=== PATIENT | male | born 1995 | race Two or more races ===

== ENCOUNTER 2017-05-13 16:30 | Emergency (ER) | payer BC, SELFPAY ==
[~2017-05-13] VITALS: Ht 177.8 cm; Wt 58.8 kg
[2017-05-13 17:15] LABS: HEMATOCRIT 47.7 % (39.2-51.8); HEMOGLOBIN 16.5 g/dL (13.7-18.0); WHITE BLOOD COUNT 7.8 x10^3/uL (3.4-10)
[2017-05-13 17:24] LABS: BLOOD UREA NITROGEN 13 mg/dL (7-18)
[2017-05-13 18:11] VITALS: BP 128/71
== END 2017-05-13 19:22 | disposition home or self-care (01) ==
LOC: ED 19:16
DX: R20.9 Unspecified disturbances of skin sensation (principal); M79.632 Pain in left forearm; F12.10 Cannabis abuse, uncomplicated
CPT/HCPCS: 36415; 80048; 82040; 85025; 99284

== ENCOUNTER → 2019-07-15 | Outpatient (CLI) | payer BC | END | disposition home or self-care (01) | LOC: CARD 08:56 | PROVIDERS: ATTEND Psychiatry & Neurology Neurology | DX: G40.89 Other seizures (principal) | CPT/HCPCS: 95819 ==

== ENCOUNTER 2020-05-08 13:49 | Emergency (ER) | payer BC, OTHER ==
[~2020-05-08] VITALS: Ht 177.8 cm; Wt 64.3 kg
[2020-05-08 14:26] LABS: BASOPHILS # (AUTO) 0.05 x10^3/uL (0-0.1); BASOPHILS % (AUTO) 1 % (0-1); EOSINOPHILS # (AUTO) 0.34 x10^3/uL (0-0.4); EOSINOPHILS % (AUTO) 4 % (1-7); LYMPHOCYTES # (AUTO) 2.61 x10^3/uL (1-3.4); LYMPHOCYTES % (AUTO) 33 % (22-44); MD NO; MEAN CORPUSCULAR HEMOGLOBIN 29.3 pg (27.5-34.5); MEAN CORPUSCULAR HGB CONC 32.8 g/dL (33.2-36.2); MEAN CORPUSCULAR VOLUME 89.5 fL (81-97); MEAN PLATELET VOLUME 8.5 fL (7.4-10.4); MONOCYTES # (AUTO) 0.84 x10^3/uL (0.2-0.8); MONOCYTES % (AUTO) 11 % (2-9); NEUTROPHILS # (AUTO) 4.07 x10^3/uL (1.8-6.8); NEUTROPHILS % (AUTO) 52 % (42-75); PLATELET COUNT 236 x10^3/uL (130-400); RED BLOOD COUNT 5.16 x10^6/uL (4.38-5.82); RED CELL DISTRIBUTION WIDTH 13.1 % (9.4-14.8)
[2020-05-08 14:34] LABS: ALBUMIN 4.4 g/dL (3.4-5.0); ANION GAP 6 mmol/L (5-15); CALCIUM 9.1 mg/dL (8.5-10.1); CHLORIDE 105 mmol/L (98-107)
[2020-05-08 14:38] LABS: ALANINE AMINOTRANSFERASE 56 U/L (12-78); ALKALINE PHOSPHATASE 70 U/L (45-117); BILIRUBIN,TOTAL 0.7 mg/dL (0.2-1.0); CREATININE 1.05 mg/dL (0.7-1.3); TOTAL PROTEIN 7.8 g/dL (6.4-8.2)
--- NOTE | 2020-05-08 15:03 | NUR ---
pt is notin room 16 at this time.
--- NOTE | 2020-05-08 15:13 | NUR ---
first contact with pt. pt c/o llq abd pain since last night. denies n/v/d. pt's aox4. resps even and unlabored. bp/spo2 monitors in place. call light within reach. pt's mother at bedside.
--- NOTE | 2020-05-08 15:28 | NUR ---
pt amb to br and back to room with steady gait. pt provided urine sample. urine collected and ua sent.
[2020-05-08] MEDS ORDERED: MORPHINE SULFATE 4 MG/ML, 1ML IVPush PRN (15:30)
[2020-05-08] MEDS ORDERED: SODIUM CHLORIDE FLUSH 10ML SYR IVF ONE (15:30)
[2020-05-08] MEDS ORDERED: ONDANSETRON 2MG/ML, 2ML IVPush ONE (15:30)
[2020-05-08] MEDS ORDERED: MORPHINE SULFATE 4 MG/ML, 1ML ONE (15:31)
[2020-05-08] MEDS ORDERED: ONDANSETRON 2MG/ML, 2ML ONE (15:31)
[2020-05-08 15:33] LABS: MICROSCOPIC NOT IND
--- NOTE | 2020-05-08 15:41 | NUR ---
pt medicated per emar. pt tolerated well.
--- NOTE | 2020-05-08 16:43 | NUR ---
pt resting in [facility]. pt's aox4. resps even and unlabored. bp/spo2 monitors in place. call light within reach.
--- NOTE | 2020-05-08 17:20 | NUR ---
this rn called ct x 2. no answer.
--- NOTE | 2020-05-08 17:48 | NUR ---
pt in ct at this time.
--- NOTE | 2020-05-08 17:55 | NUR ---
pt back to room from ct at this time.
[2020-05-08] MEDS ORDERED: OMNIPAQUE 350 MG/ML, 100ML BOTTLE ONE (17:58)
[2020-05-08 18:13] VITALS: BP 110/54
--- NOTE | 2020-05-08 18:15 | NUR ---
pt resting in [facility]. pt's aox4. resps even and unlabored. bp/spo2 monitors in place. call light within reach. pt denies any needs or concerns at this time.
--- NOTE | 2020-05-08 18:58 | NUR ---
Patient given discharge instructions and they have confirmed that they understand the instructions. Patient ambulatory with steady gait.
== END 2020-05-08 18:59 | disposition home or self-care (01) ==
LOC: ED 15:25
DX: R10.32 Left lower quadrant pain (principal); K21.9 Gastro-esophageal reflux disease without esophagitis; F17.200 Nicotine dependence, unspecified, uncomplicated
CPT/HCPCS: 36415; 74177; 80053; 81003; 83690; 85025; 96374; 96375; 99285; J2270; J2405; Q9967; 99284